=== PATIENT | male | born 1960 | race Caucasian/White ===

== ENCOUNTER 2019-12-15 15:07 | Inpatient (IN) | payer OTHER ==
[~2019-12-15] VITALS: Ht 177.8 cm; Wt 93.1 kg
--- NOTE | ~2019-12-15 | EMS ---
[address] [address] EMS Patient Care Report Name: SIDRA ROWLEY Room #: 170-5 ADM IN M.R.#: [id number] Admission: 12/15/19 Attend Phys: Glen Francis MD Discharge: Date of : 56 Report #: [id number] THIS REPORT FOR: //name// Report Transmitted: 12/15/2019 17:00 EMS Care Summary [facility] MED-ACT Incident [id number] @ 12/15/2019 14:27 Incident Location [address] [address] Patient SIDRA ROWLEY Male, 59 Years 1960 Patient Address [address] [address] Patient History Hypertension (HTN),Urinary Tract Infection (UTI),Anxiety,Paraplegia, Patient Allergies No known allergies, Patient Medications Bisacodyl, Coreg, Gabapentin, Acetaminophen, Cymbalta, Guaifenesin, Senna, Eliquis, Oxycodone, Chief Complaint Lethargic, fever Disposition Transported No Lights/[place] [facility] Reason Breathing Problem Transported To [facility] Narrative [id number] arrived on scene to find pt lying supine in his bed, in care of [place] Q33. Pt appeared to be in no acute distress. [address] [address] EMS Patient Care Report Name: SIDRA ROWLEY Room #: 170-5 ADM IN .José Luis.#: [id number] Admission: 12/15/19 Attend Phys: Glen Francis MD Discharge: Date of : 56 Report #: [id number] Staff states pt has had a noticeable decrease in alertness today. Pt is normally agitated and demanding of staff. Today, pt is unable to answer some questions correctly and is quiet. RN states pt was using his motorized wheelchair earlier and "it was like he was drunk driving." Staff also reports a fever that they gave him tylenol for. His fever was noted to be 100.7 after tylenol. When asked, pt is unable to voice a chief complaint. Pt occasionally gives irrelevant answers to questions. Staff is concerned about sepsis/UTI. Staff denies any current COVID cases at the facility, but states pt returned from the hospital a few days ago. VS, exam, O2 ETCO2 NC at 2 lpm applied. Pt sheet lifted to cot, secured with seatbelts--> unit. ECG, IV established, bG checked- 140. No further complaints and VS monitored en route. Biocom to [place] with information only. Pt sheet lifted to ER bed. Report given and care transferred to MOBILE THERAPIST, pt condition unchanged. Initial Vitals @14:44P: 97,BP: 115/64, @14:43P: 101,R: 21,EtCO2: 42,SpO2: 94, @PTAP: 102,R: 24,BP: 115/63,GCS: 14,SpO2: 91,Revised Trauma: 12, @14:50P: 99,R: 23,BP: 119/64,EtCO2: 41,SpO2: 93, @15:00P: 102,R: 23,EtCO2: 41,SpO2: 97, @15:00P: 96,R: 21,BP: 115/65,GCS: 14,SpO2: 96,Revised Trauma: 12,TX Suspected: false Assessments @14:40MENTAL:Confused,Person Oriented,Place Oriented,SKIN:Hot,HEENT:Head/Face: No Abnormalities,Neck/Airway: No Abnormalities,LUNG SOUNDS:General: No Abnormalities,ABDOMEN:General: No Abnormalities,PELVIS//GI:EXTREMITIES:Left Leg: Paralysis,Right Arm: Weakness,Left Arm: Weakness,Right Leg: Paralysis,PULSE:Radial: 2+ Normal,NEURO: Impression Sepsis/Septicemia Procedures @PTAOxygen FlowRate: 2 Device: CO2 Nasal Cannula Response: ImprovedSucceeded@14:55Surgical Mask on PatientResponse: Unchanged@14:59Saline Lock 10cc (20 ga) Site: Antecubital-LeftResponse: UnchangedSucceeded Timeline SHAREPOINT DESIGNER DEVELOPER,Oxygen FlowRate: 2 Device: CO2 Nasal Cannula Response: ImprovedSucceeded, [facility] [address] [place] [address] EMS Patient Care Report Name: HALLEYSIDRA WILLIE Room #: 170-5 ADM IN M.R.#: [id number] Admission: 12/15/19 Attend Phys: Glen Francis MD Discharge: Date of : 56 Report #: [id number] SHAREPOINT DESIGNER DEVELOPER,BP: 115/63 M,PULSE: 102,RR: 24 R,SPO2: 91 Ox,ETCO2: ,BG: ,PAIN: ,GCS: 14, 14:26,Call Received 14:26,Psap Call 14:27,Dispatched 14:27,En Route 14:33,On Scene 14:36,At Patient 14:43,BP: / M,PULSE: 101,RR: 21 R,SPO2: 94 Ox,ETCO2: 42 ,BG: ,PAIN: ,GCS: , 14:44,BP: 115/64 M,PULSE: 97,RR: R,SPO2: Ox,ETCO2: ,BG: ,PAIN: ,GCS: , 14:48,Depart Scene 14:50,BP: 119/64 M,PULSE: 99,RR: 23 R,SPO2: 93 Ox,ETCO2: 41 ,BG: ,PAIN: ,GCS: , 14:55,Surgical Mask on Patient,Response: Unchanged 14:59,Saline Lock 10cc 20 ga Site: Antecubital-Left,Response: UnchangedSucceeded, 15:00,BP: / M,PULSE: 102,RR: 23 R,SPO2: 97 Ox,ETCO2: 41 ,BG: ,PAIN: ,GCS: , 15:00,BP: 115/65 M,PULSE: 96,RR: 21 R,SPO2: 96 Ox,ETCO2: ,BG: ,PAIN: ,GCS: 14, 15:00,At Destination 15:21,Call Closed Disclaimer v1.1 Copyright 2020 [employer] This EMS Care Summary contains data elements from the applicable legal record (which may be displayed differently). It is designed to provide pertinent information for the following purposes: continuity of care, clinical quality, and state data reporting. The complete legal record is available to ED staff and administrators of the receiving hospital in [employer] Patient Tracker. All data is provided "as is."
[2019-12-15 15:39] LABS: HEMATOCRIT 32.7 % (42.0-52.0); HEMOGLOBIN 10.5 gm/dL (14.0-18.0); MCH 26.8 pg (26.0-34.0); MCHC 32.2 g/dL (28.0-37.0); MCV 83.3 fL (80.0-100.0); PLATELET COUNT 176 thou/uL (150-400); RBC 3.93 mil/uL (4.50-6.00); RDW 13.8 % (10.5-14.5); WBC 13.5 thou/uL (4.0-11.0)
[2019-12-15 15:48] LABS: CREATININE 0.9 mg/dL (0.7-1.3); POTASSIUM 3.2 mmol/L (3.5-5.1)
[2019-12-15 15:54] LABS: ALBUMIN 2.8 g/dL (3.4-5.0); DIRECT BILIRUBIN 0.2 mg/dL (<0.1-0.2); TOTAL BILIRUBIN 0.6 mg/dL (0.2-1.0); TOTAL PROTEIN 6.8 g/dL (6.4-8.2)
[2019-12-15 15:59] LABS: ABSOLUTE NEUTROPHILS 10.7 thou/uL (1.4-8.2)
[2019-12-15 16:01] LABS: URINE BILIRUBIN NEGATIVE (Negative); URINE BLOOD 2+ (Negative); URINE CLARITY CLOUDY; URINE COLOR YELLOW; URINE GLUCOSE-RANDOM* NEGATIVE (Negative); URINE KETONES NEGATIVE (Negative); URINE NITRITE-REFLEX NEGATIVE (Negative); URINE PROTEIN (DIPSTICK) 1+ (Negative); URINE UROBILINOGEN 0.2 E.U./dl (0.2-1.0)
[2019-12-15 16:03] LABS: URINE LEUKOCYTES-REFLEX 3+ (Negative)
[2019-12-15 16:07] LABS: BACTERIA-REFLEX >30 Many /HPF (None Seen); SQUAMOUS 0-3 Few /LPF (0-3); URINE RBC 3-10 Few /HPF (0-2); URINE WBC-REFLEX >25 Many /HPF (0-5)
[2019-12-15 16:08] LABS: CASTS None Seen /LPF (None Seen); CRYSTALS None Seen /LPF (None Seen)
[2019-12-15] MEDS ORDERED: MAPAP500 M1 PO (17:04)
[2019-12-15] MEDS ORDERED: BAZA CR.1 E1 TOP (17:06)
[2019-12-15] MEDS ORDERED: ARTIFICIAL TEAR1510 OPHTHALMIC (17:06)
[2019-12-15] MEDS ORDERED: CALCIUM CARBON500 MG PO (17:07)
[2019-12-15] MEDS ORDERED: BUSPIRONE HCL7.5 MG PO (17:07)
[2019-12-15] MEDS ORDERED: CARVEDILOL3.125 MG PO (17:08)
[2019-12-15] MEDS ORDERED: CYMBALTA30 MG PO (17:08)
[2019-12-15] MEDS ORDERED: DANTROLENE SOD PO (17:09)
[2019-12-15] MEDS ORDERED: ELIQUIS2.5 MG PO (17:10)
[2019-12-15] MEDS ORDERED: DEPAKOTE125 MG PO (17:10)
[2019-12-15] MEDS ORDERED: FAMOTIDINE 20 M20 MG PO (17:10)
[2019-12-15] MEDS ORDERED: GRALISE300 MG PO (17:11)
[2019-12-15] MEDS ORDERED: MIRALAX17 GM PO (17:12)
[2019-12-15] MEDS ORDERED: LIDODERM1 EACH TOP (17:13)
[2019-12-15] MEDS ORDERED: KLOR-CON M2020 MEQ PO (17:13)
[2019-12-15] MEDS ORDERED: ONDANSETRON HCL4 M3 PO (17:14)
[2019-12-15] MEDS ORDERED: MELATONIN3 M1 PO (17:14)
[2019-12-15] MEDS ORDERED: OXYCODONE HCL5 MG PO (17:15)
[2019-12-15] MEDS ORDERED: FLOMAX0.4 MG PO (17:16)
[2019-12-15] MEDS ORDERED: SENNA PLUS TAB1 EACH PO (17:16)
[2019-12-15] MEDS ORDERED: DESYREL150 MG PO (17:17)
[2019-12-15] MEDS ORDERED: THERA-D100 MCG PO (17:20)
[2019-12-15] MEDS ORDERED: OPTIMAL D3 M350 MCG PO (17:21)
[2019-12-15] MEDS ORDERED: BISACODYL10 MG RECTAL (17:21)
[2019-12-15 18:34] LABS: TOTAL PROTEIN 6.3 g/dL (6.4-8.2)
[2019-12-15 18:59] LABS: TSH 0.41 uIU/mL (0.358-3.740)
[2019-12-15 19:22] VITALS: BP 113/70
--- NOTE | 2019-12-15 21:26 | NUR ---
ATTEMPTED TO CALL REPORT, NURSE WILL CALL BACK
[2019-12-15 21:56] VITALS: BP 141/76
[2019-12-15 22:35] VITALS: BP 145/71
[2019-12-16 04:06] VITALS: BP 143/68
--- NOTE | 2019-12-16 04:38 | NUR ---
Arrived from ER around 2224. Oriented to person only and stated it's November. Paraplegic but has sensation on lenora lower ext. Elevated temp treated with tylenol with some relief. Cont. on enhanced precaution to R/O COVID. 1st COVID PCR negative, 2nd swab will be sent this am. Repositioned for comfort. Bilateral lower ext. edema , tubigrip in place from facility.SCD's applied. Small redrash on inner legs. Protective barrier cream applied.
[2019-12-16 06:05] LABS: HEMATOCRIT 33.1 % (42.0-52.0); HEMOGLOBIN 10.5 gm/dL (14.0-18.0); MCH 26.8 pg (26.0-34.0); MCHC 31.7 g/dL (28.0-37.0); MCV 84.6 fL (80.0-100.0); RBC 3.91 mil/uL (4.50-6.00); RDW 13.5 % (10.5-14.5); WBC 12.8 thou/uL (4.0-11.0)
[2019-12-16 06:16] LABS: CALCIUM 8.4 mg/dL (8.5-10.1); CREATININE 0.8 mg/dL (0.7-1.3); MAGNESIUM 1.6 mg/dL (1.8-2.4); POTASSIUM 3.1 mmol/L (3.5-5.1)
[2019-12-16] MEDS ORDERED: DANTROLENE SODI50 MG PO (08:01)
[2019-12-16] MEDS ORDERED: DEPAKOTE SPRIN125 MG PO (08:03)
[2019-12-16] MEDS ORDERED: MEROPENEM-500 MG/50 IVPB (08:15)
[2019-12-16] MEDS ORDERED: OXYCODONE HCL E10 MG PO ×2 (08:18→08:19)
[2019-12-16] MEDS ORDERED: TYLENOL325 MG PO (08:20)
[2019-12-16 17:00] VITALS: BP 142/76
--- NOTE | 2019-12-16 18:30 | NUR ---
NOTED TO HAVE FEVER THIS PM. TYLENOL ADMINISTERED. TESTED NEGATIVE TWICE FOR COVID. NO COUGH NOTED. LEFT DENTURES AT [facility] DIET DOWNGRADED TO [facility] SOFT UNTIL HIS DENTURES ARE AVAILABLE. WILL CONT WITH PLAN OF CARE.
[2019-12-16 19:52] VITALS: BP 135/67
--- NOTE | 2019-12-17 02:20 | NUR ---
PT CARE ASSUMED IWITH PT IN BED WATCHING TV.PT IS ALERT AND ORIENTED X3.PT IS FORGETFUL AND CONFUSE.PT IS PARAPLEGIC .PT HAD TEMPERATURE OF 100.3 AND TYLENOL ADMINISTERED.PT IS NEGATIVE FOR COVID.PT IS Q2 REPOSITIONING.PT C/O AND WAS GIVE OXYCODONE WITH RELIEF.PT HAS A MEYER CATHETER AND DRAINING GOOD.WILL CONTINUE TO MONITOR PER POC
[2019-12-17 04:34] VITALS: BP 132/64
[2019-12-17 05:01] LABS: HEMATOCRIT 27.7 % (42.0-52.0); MCH 27.2 pg (26.0-34.0); MCHC 32.5 g/dL (28.0-37.0); MCV 83.7 fL (80.0-100.0); RBC 3.31 mil/uL (4.50-6.00); RDW 13.8 % (10.5-14.5); WBC 7.7 thou/uL (4.0-11.0)
[2019-12-17 05:06] LABS: CALCIUM 8.4 mg/dL (8.5-10.1); CREATININE 0.6 mg/dL (0.7-1.3)
[2019-12-17 05:10] LABS: POTASSIUM 2.7 mmol/L (3.5-5.1)
[2019-12-17 07:30] VITALS: BP 138/71
--- NOTE | 2019-12-17 08:20 | NUR ---
IN ROOM. WANTED TO REPOSITION PT. PT WENT FROM LEFT SIDE TO BACK. PT WOULD LIKE TO GO BACK ON LEFT SIDE. PILLOWS USED TO TURN PT
--- NOTE | 2019-12-17 13:58 | NUR ---
PT IS YELLING OUT help CONTINUOUSLY. WHEN I ENTER ROOM. PT DOESN'T KNOW WHAT HE NEEDS. PT TURNED AND REPOSITIONED. PERINEUM CARE GIVEN. PT DOES NOT WANT TO TURN ON HIS SIDE. IMPORTANCE OF TURNING EXPLAINED TO PT.
[2019-12-17 15:39] VITALS: BP 152/81
--- NOTE | 2019-12-17 15:59 | NUR ---
REPORT CALLED TO JOSE ON 4W. PT BEING TRANSFERRED TO ROOM 450
--- NOTE | 2019-12-17 16:07 | NUR ---
INITIAL ASSESSMENT: Received consult. LUNA reviewed chart and spoke with nursing and attending physician. Pt was admitted from [facility] due to urosepsis. Pt placed in Enhanced Isolation to r/o COVID-19. Pt has had negative COVID test. Enhanced Isolation precautions have been discontinued. Pt with hx of paraplegia. Pt is on IV abx. LUNA placed call to pt's room. Introduced role of SW. Pt appears to be alert/orientated. Pt requested SW return call at a later time. LUNA left voice message for the admissions dept at [facility]. search planner to fax clinical info/COVID test results to the facility for review. LUNA spoke with pt via phone and pt is unable to hear questions or have conversation via phone. LUNA is following to assist as needed with discharge planning.
--- NOTE | 2019-12-17 17:09 | NUR ---
FAXED CLINICAL UPDATE TO [facility] SPOKE WITH YESSICA IN AMD SHE RECEIVED UPDATE.
[2019-12-17 17:18] VITALS: BP 176/86
[2019-12-17 19:08] VITALS: BP 132/80
--- NOTE | 2019-12-17 19:42 | NUR ---
REceived pt from [facility] , VS [facility]. FC in place and patent. Diet and medications are tolerated well. Pt screams for help non stop, when asked what is needed pt says "i dont know" .Refused Q2 turns, informed MD of behaviour, medication on board prn. Endorsed to the night nurse.
[2019-12-18 05:49] LABS: HEMATOCRIT 31.1 % (42.0-52.0); MCH 26.8 pg (26.0-34.0); MCV 83.6 fL (80.0-100.0); RBC 3.72 mil/uL (4.50-6.00); RDW 13.8 % (10.5-14.5)
[2019-12-18 06:21] LABS: CALCIUM 8.7 mg/dL (8.5-10.1); CREATININE 0.6 mg/dL (0.7-1.3); MAGNESIUM 1.8 mg/dL (1.8-2.4); POTASSIUM 3.3 mmol/L (3.5-5.1)
--- NOTE | 2019-12-18 06:37 | NUR ---
ASSUMED PT CARE AROUND 1930. PT CALLS FREQUENT, WHEN ARRIVE IN ROOM, PT DOES NOT KNOW WHAT HE WANTS AND WILL JUST STARE AT NURSING TEAM. TRIED TO ACCOMODATE MUCH PT ALLOWS. NO S/S ACUTE DISTRESS NOTED OR REPORTED AT THIS TIME. WILL CONT TO MONITOR FOR ANY CHANGES IN CONDITION.
[2019-12-18 07:00] VITALS: BP 191/80
--- NOTE | 2019-12-18 11:45 | NUR ---
CARE TEAM INDICATED THAT PT HAS A FEVER THIS AM. CM CALLED AND SPOKE WITH PT'S SON ELVIA HE CONFIRMED THAT PT RESIDES OVER AT [facility]. HE INDICATED THAT HE ANTICIPATES PT RETURNING THERE ONCE MEDICALLY STABLE. PT AND OT ASSESSED AND INDICATED THAT THEY WERE DISCHARGING PT IS AT BASELINE FOR MOBILITY AND ADLS PT IS 2 PERSON ASSIT TO MOVE FROM BED TO MOTORIZED SCOOTER. PT IS IV CEFTRIAXONE DAILY CURRENTLY. CLINICAL UPDATE SENT TO [facility] YESTERDAY. THEY ARE ABLE TO ACCEPT PT BACK ONCE MEDICALLY STABLE. CM TO FOLLOW INDICATED WITH DC PLANNING.
[2019-12-18 15:00] VITALS: BP 148/81
[2019-12-18 19:20] VITALS: BP 166/76
--- NOTE | 2019-12-18 19:35 | NUR ---
Assumed pt care this am, vs stable. Q2 turns attempted, refused the most ofthe turns and did not wantto use a wedge. Alert to self, would sceam nurses name and would want the staff to stay in the room and not leave. Elevated temp and pain are managed with medications. POC followed , endorsed to the night nurse.
[2019-12-19] VITALS (7 sets, daily range): BP systolic 118–177; BP diastolic 70–84
--- NOTE | 2019-12-19 03:42 | NUR ---
ASSUMED PT CARE AROUND 1930. ELEVATED BP REPORTED AND NEW ORDERS RECEIVED. NO S/S ACUTE DISTRESS NOTED OR REPORTED AT THIS TIME. WILL CONT TO MONITOR FOR ANY CHANGES IN CONDITION.
[2019-12-19 05:47] LABS: HEMATOCRIT 31.3 % (42.0-52.0); MCH 26.6 pg (26.0-34.0); MCHC 31.9 g/dL (28.0-37.0); MCV 83.4 fL (80.0-100.0); RBC 3.75 mil/uL (4.50-6.00); RDW 13.5 % (10.5-14.5); WBC 5.9 thou/uL (4.0-11.0)
[2019-12-19 06:32] LABS: CALCIUM 8.9 mg/dL (8.5-10.1); CREATININE 0.6 mg/dL (0.7-1.3); MAGNESIUM 1.8 mg/dL (1.8-2.4); POTASSIUM 3.6 mmol/L (3.5-5.1)
--- NOTE | 2019-12-19 12:17 | NUR ---
PT A&OX1-2, VSS, C/O PAIN IN BACK. PAIN MEDICATION GIVEN. PATIENT SLEEPING MOST OF DAY. PATIENT REFUSED BREAKFAST. PATIENT REPOSITIONED. IV LEFT FA REMAINS PATENT, MEYER PATENT. NO SIGNS OF DISTRESS. WILL CONTINUE TO MONITOR.
--- NOTE | 2019-12-19 15:45 | NUR ---
CARE TEAM INDICATED THAT PT IS STILL HAVING FEVERS. CARE TEAM INDICATED THAT PT WILL LIKELY BE MEDICALLY STABLE TO RETURN TO [facility] TOMORROW. PHYSICIAN INDICATED THAT HE ANTICIPATES PT RETURNING ON ORAL ABX. CM REQUESTED THAT REPEAT COVID BE DONE THEY NEED ONE WITHIN 72 HOURS AND LAST TEST WAS 12/15. CM NOTIFIED LIAISON AT [facility]. CM TO FOLLOW INDICATED WITH DC PLANNING.
--- NOTE | 2019-12-20 04:33 | NUR ---
ASSUMED PT CARE 2049. I ASSESED THE PT, NO CHANGE SINCE CANDI'S (RN) ASSESSMENT. PT HAS COMPLAINTS OF GENERALIZED PAIN AT AN 8 TO 9. OXYCODONE IS GIVEN Q4 PER THE PT'S REQUEST. PT COMPLAINS OF THE MUCSLE SPASMS IN HIS FEET. I APPLIED AN ICE PACK. PT ASKS FOR HELP WITH NEEDS. PT REFUSES TO BE TURNED, THOUGH I DID ADJUST THE PILLOWS AND LEVEL OF THE BED. PT HEAD OF BED IS ELEVATED AND PT TAKES MEDS WHOLE. WILL CONTINUE TO MONITOR.
--- NOTE | 2019-12-20 07:55 | NUR ---
THIS RN HAS REVIEWED THE WEED CONTROLLER'S CHARTING AND ASSESSMENTS AND AGREE AND APPROVE ALL CARE PROVIDED.
[2019-12-20 08:00] VITALS: BP 142/82
[2019-12-20 09:13] VITALS: BP 142/83
[2019-12-20] MEDS ORDERED: GABAPENTIN 100100 MG PO (10:58)
[2019-12-20] MEDS ORDERED: LEVOFLOXACIN500 MG PO (11:13)
--- NOTE | 2019-12-20 12:53 | NUR ---
PT DISCHARGING TODAY TO [facility] FAXED DC ORDERS/SUMMARY TO FACILITY SPOKE WITH YESSICA IN ADM SHE RECEIVED ORDERS AND ARRANGED TRANSPORT BY [facility] FOR 1500 TODAY. LEFT MSG WITH PT'S SON (ELVIA) WITH TIME OF TRANSPORT. UNIT NOTIFIED AND CHART COPY PER US. RN TO CALL REPORT TO [phone].
--- NOTE | 2019-12-20 13:15 | NUR ---
ASSUMED CARE AT 0700. PATIENT IS ALERT AND ORIENTEDX3. PATIENT HAS BILATERAL WEAKNESS IN HIS UPPER EXTREMITES. PATIENT HAS M.S. AND IS PARAPLEGIC. PATIENT HAS GENERALIZED EDEMA AND HAS TUBIGRIPS ON. PATIENT HAS NEUROGENIC BLADDER AND MEYER IS DRAINING [place] COLORED URINE. FALL AND SAFETY PROTOCOLS IN PLACE. C/O BACK PAIN. MEDICATED WITH PRN PAIN MED. PLAN D/C TO FACILITY LATER TODAY.
--- NOTE | 2019-12-20 13:55 | NUR ---
CARE TEAM INDICATED THAT PT IS MEDICALLY STABLE TO DISCHARGE BACK TO [facility] THIS DAY. CHART COPY MADE. ORDERS FAXED. [facility] TRANSPORT ARRANGED FOR 1500. PT AND PT'S SON NOTIFIED. NURSE TO CALL REPORT TO FACILITY. NO OTHER CM INTERVENTION INDICATED. CASE CLOSED.
--- NOTE | 2019-12-20 15:14 | NUR ---
D/C'D VIA TRANSPORT [facility] IN GOOD CONDITION. PATIENT GIVEN PAIN MED PO FOR TRIP TO THE FACILITY.
== END 2019-12-20 15:18 | DRG 871 ==
LOC: ER 15:07 → 3W 17:01 → EROBS 17:01 → 3W 22:05 → 4W 12-17 16:17
PROVIDERS: Nurse Practitioner; ADMIT Internal Medicine; ATTEND Internal Medicine
DX: A41.9 Sepsis, unspecified organism (principal); G92 Toxic encephalopathy; N39.0 Urinary tract infection, site not specified; N40.0 Benign prostatic hyperplasia without lower urinary tract symptoms; I10 Essential (primary) hypertension; E83.42 Hypomagnesemia; E87.6 Hypokalemia; M48.00 Spinal stenosis, site unspecified; Z20.828 Contact with and (suspected) exposure to other viral communicable diseases; Z86.718 Personal history of other venous thrombosis and embolism; Z79.01 Long term (current) use of anticoagulants; Z79.899 Other long term (current) drug therapy; Z23 Encounter for immunization
CPT/HCPCS: 10040; 10080